=== PATIENT | male | born 1960 | race Caucasian/White ===

== ENCOUNTER 2017-10-01 12:25 | Day surgery (SDC) | payer BC ==
[~2017-10-01] VITALS: Ht 172.7 cm; Wt 86.6 kg
[2017-10-01 13:16] VITALS: Ht 172.7 cm; Wt 86.6 kg
[2017-10-01] MEDS ORDERED: RANI-347 PO (13:24)
[2017-10-01] MEDS ORDERED: ESOM40CA PO (13:24)
[2017-10-01] MEDS ORDERED: IBUP100T46 PO (13:24)
[2017-10-01] MEDS ORDERED: OMEP40CA6 PO (13:24)
[2017-10-01] MEDS ORDERED: RANI50VI5 IJ (13:24)
[2017-10-01 13:35] VITALS: BP 127/69; PULSE 73; RESP 14
--- NOTE | 2017-10-01 14:16 | OPPN ---
Date/Time of Note Date/Time of Note DATE: 10/01/17 TIME: 14:15 Operative Report Preoperative Diagnosis Screening colonoscopy Postoperative Diagnosis Few scattered diverticuli in the colon otherwise normal: Operation/Procedure Performed Colonoscopy Surgeon see signature line housekeeping assistant None Anesthesia: moderate sedation (Versed 3 milligrams fentanyl 100 mcg total moderate sedation time 18 minutes) Estimated blood loss: none Transfusion Required none Specimen None Grafts/Implants none Complications none MELIZA ALLEN MD Oct 01, 2017 14:16
[2017-10-01] MEDS ORDERED: MIDAZOLAM 1 MG/ML 2 ML INJ ONE ×2 (14:18)
[2017-10-01] MEDS ORDERED: FENTAnyl 50 MCG/ML VIAL ONE (14:19)
--- NOTE | 2017-10-02 07:47 | GILP ---
DATE OF PROCEDURE: PREOPERATIVE DIAGNOSIS: Screening colonoscopy. POSTOPERATIVE DIAGNOSIS: Few diverticula in the colon, scattered diverticula, otherwise normal colo noscopy. DESCRIPTION OF PROCEDURE: The patient was put in left lateral decubitus after obtaining informed co nsent. The patient was sedated, monitored on oximetry, EKG, blood pressure. He received 3 mg of IV Versed and 100 mcg of fentanyl, and advanced Olympus video colonoscope all th e way to cecum. Ileocecal valve, appendiceal opening identified. Cecum, ascending colon, transvers e colon, descending colon, sigmoid colon examined thoroughly. Demonstrated a few scattered divertic hari, otherwise normal. Rectum including rectal exam also on retroflexion normal. Upon removal of s cope, patient had no complication. Plan will be to follow as outpatient. Repeat colonoscopy in 10 years and high fiber diet. Dictated By: MELIZA FOFANA/HEIDI Conf#: [id number] DID#: [id number] CC: VIKRAM SANDOVAL M.D.;*End*
== END 2017-10-01 16:36 | disposition home or self-care (01) ==
LOC: GIL 12:25
PROVIDERS: ATTEND Internal Medicine
DX: Z12.11 Encounter for screening for malignant neoplasm of colon (principal); K57.90 Diverticulosis of intestine, part unspecified, without perforation or abscess without bleeding
CPT/HCPCS: 45378; J2250; J3010; Z7610